=== PATIENT | male | born 1995 | race Caucasian/White ===

== ENCOUNTER 2019-01-18 10:07 | Emergency (ER) | payer MEDICAID ==
[~2019-01-18] VITALS: Wt 84.6 kg
[2019-01-18] MEDS ORDERED: ONDANSETRON (ODT) 4 MG TAB ODT STA (10:41)
[2019-01-18] MEDS ORDERED: KETOROLAC 30 MG INJ IM STA (10:41)
[2019-01-18] MEDS ORDERED: LIDOCAINE/MYLANTA 40 ML BTL PO ONE (11:00)
[2019-01-18] MEDS ORDERED: ACET-141 PO (12:33)
[2019-01-18] MEDS ORDERED: UDMYL PO (12:33)
--- NOTE | 2019-01-18 12:34 | ERD ---
ER Documentation Chief Complaint Chief Complaint mid upper abd pain rad downward w n/v ROS All systems reviewed and are negative except as per history of present illness. Medications Home Meds Active Scripts Acetaminophen* (Acetaminophen*) 500 MG Extra Strength Tablet, 500 MG PO Q4H PRN for PAIN AND OR ELEVATED TEMP, #30 TAB Prov:ANAY BAILEY DO 01/18/19 Magaldrate/Simethicone* (Mag-Al Plus Suspension*) 30 Ml Oral.susp, 30 ML PO Q6H PRN for GASTROINTESTINAL UPSET, #1 BOTTLE Prov:ANAY BAILEY DO 01/18/19 Allergies Allergies: Coded Allergies: No Known Allergy (Unverified , 01/18/19) PMhx/Soc Medical and Surgical Hx: pt denies Medical Hx, pt denies Surgical Hx Hx Alcohol Use: No Hx Substance Use: No Hx Tobacco Use: No Smoking Status: Never smoker Physical Exam Vitals Vital Signs Date Temp Pulse Resp B/P (MAP) Pulse Ox O2 O2 Flow FiO2 Time Delivery Rate 01/18/19 97.5 82 20 110/56 97 10:11 (74) Physical Exam Const: No acute distress Head: Atraumatic Eyes: Normal Conjunctiva ENT: Normal External Ears, Nose and Mouth. Neck: Full range of motion. No meningismus. Resp: Clear to auscultation bilaterally Cardio: Regular rate and rhythm, no murmurs Abd: Soft, non tender, non distended. Normal bowel sounds Skin: No petechiae or rashes Back: No midline or flank tenderness Ext: No cyanosis, or edema Neur: Awake and alert Psych: Normal Mood and Affect Result Diagram: 01/18/19 1055 01/18/19 1055 Results 24 hrs Laboratory Tests Test 01/18/19 10:47 01/18/19 10:55 Urine Color YELLOW Urine Clarity CLEAR Urine pH 8.0 Urine Specific Williamson 1.021 Urine Ketones NEGATIVE mg/dL Urine Nitrite NEGATIVE mg/dL Urine Bilirubin NEGATIVE mg/dL Urine Urobilinogen NEGATIVE mg/dL Urine Leukocyte Esterase NEGATIVE Veronica/ul Urine Hemoglobin NEGATIVE mg/dL Urine Glucose NEGATIVE mg/dL Urine Total Protein NEGATIVE mg/dl White Blood Count 9.3 10^3/ul Red Blood Count 6.07 10^6/ul Hemoglobin 16.5 g/dl Hematocrit 49.1 % Mean Corpuscular Volume 80.9 fl Mean Corpuscular Hemoglobin 27.2 pg Mean Corpuscular Hemoglobin Concent 33.6 g/dl Red Cell Distribution Width 12.7 % Platelet Count 243 10^3/UL Mean Platelet Volume 11.1 fl Immature Granulocytes % 0.400 % Neutrophils % 83.4 % Lymphocytes % 11.5 % Monocytes % 4.2 % Eosinophils % 0.2 % Basophils % 0.3 % Nucleated Red Blood Cells % 0.0 /100WBC Immature Granulocytes # 0.040 10^3/ul Neutrophils # 7.8 10^3/ul Lymphocytes # 1.1 10^3/ul Monocytes # 0.4 10^3/ul Eosinophils # 0.0 10^3/ul Basophils # 0.0 10^3/ul Nucleated Red Blood Cells # 0.0 10^3/ul Sodium Level 141 mmol/L Potassium Level 4.3 mmol/L Chloride Level 100 mmol/L Carbon Dioxide Level 29 mmol/L Anion Gap 12 Blood Urea Nitrogen 12 mg/dl Creatinine 0.77 mg/dl Est Glomerular Filtrat Rate mL/min > 60 mL/min Glucose Level 124 mg/dl Calcium Level 10.3 mg/dl Total Bilirubin 0.8 mg/dl Direct Bilirubin 0.00 mg/dl Indirect Bilirubin 0.8 mg/dl Aspartate Amino Transf (AST/SGOT) 39 IU/L Alanine Aminotransferase (ALT/SGPT) 48 IU/L Alkaline Phosphatase 71 IU/L Total Protein 9.2 g/dl Albumin 5.0 g/dl Globulin 4.20 g/dl Albumin/Globulin Ratio 1.19 Lipase 90 U/L Current Medications Medications Dose Sig/Anibal Start Time Status Last (Trade) Ordered Route PRN Stop Time Admin Dose Reason Admin Ketorolac 30 mg ONCE STAT 01/18/19 DC 01/18/19 Tromethamine IM 10:41 10:49 (Toradol) 01/18/19 10:44 Ondansetron 4 mg ONCE STAT 01/18/19 DC 01/18/19 HCl (Zofran ODT 10:41 10:49 Odt) 01/18/19 10:44 40 ml ONCE ONCE 01/18/19 DC 01/18/19 Miscellaneous PO 11:00 10:48 Medication 01/18/19 11:01 (Gi Cocktail (2)) Departure Diagnosis: Primary Impression: Abdominal pain Abdominal location: epigastric Qualified Codes: R10.13 - Epigastric pain Condition: Fair Patient Instructions: Abdominal Pain, Gastritis (Adult) Referrals: [facility] YOU HAVE RECEIVED A MEDICAL SCREENING EXAM AND THE RESULTS INDICATE THAT YOU DO NOT HAVE A CONDITION THAT REQUIRES URGENT TREATMENT IN THE EMERGENCY DEPARTMENT. FURTHER EVALUATION AND TREATMENT OF YOUR CONDITION CAN WAIT UNTIL YOU ARE SEEN IN YOUR DOCTORS OFFICE WITHIN THE NEXT 1-2 DAYS. IT IS YOUR RESPONSIBILITY TO MAKE AN APPOINTMENT FOR FOLOW-UP CARE. IF YOU HAVE A PRIMARY DOCTOR --you should call your primary doctor and schedule an appointment IF YOU DO NOT HAVE A PRIMARY DOCTOR YOU CAN CALL OUR PHYSICIAN REFERRAL HOTLINE AT IF YOU CAN NOT AFFORD TO SEE A PHYSICIAN YOU CAN CHOSE FROM THE FOLLOWING [facility] [address] [facility] [facility] [address] [facility] [facility] [address] [facility] [address] [facility] [facility] [address] [facility]. [facility]. [address] Additional Instructions: Call your primary care doctor TOMORROW for an appointment during the next 1-2 days.See the doctor sooner or return here if your condition worsens before your appointment time. Llame al doctor MAANA y joanna perlita DIANNA PARA DENTRO DE 1-2 RIVAS.Dgale a la secretaria que nosotros le instruimos hacer esta dianna.Avise o llame si chamorro condicin se empeora antes de la dianna. Regresa aqui si peor o no mejor. ANAY BAILEY DO Jan 18, 2019 12:34
[2019-01-18 12:42] VITALS: BP 112/63; PULSE 76; RESP 18
== END 2019-01-18 12:41 | disposition home or self-care (01) ==
LOC: FTE 10:07
DX: R10.13 Epigastric pain (principal)
CPT/HCPCS: 36415; 76700; 80053; 81003; 83690; 85025; 96372; J1885; Z7502; Z7610

== ENCOUNTER 2019-07-12 12:48 | Emergency (ER) | payer MEDICAID ==
[~2019-07-12] VITALS: Ht 167.6 cm; Wt 82.1 kg
[~2019-07-12 12:48] MED LIST: ACET-141 PO; NAPR-985 PO; UDMYL PO
[2019-07-12 13:06] VITALS: BP 131/74; PULSE 77; RESP 18; Ht 167.6 cm; Wt 82.1 kg
[2019-07-12] MEDS ORDERED: LIDOCAINE 1% (MPF) 5 ML VIAL INJ ONE (13:30)
[2019-07-12] MEDS ORDERED: DIPHTH/TET/ACEL PERTUSS (ADULT) 0.5 ML VIAL IM* ONE (14:30)
== END 2019-07-12 14:38 | disposition home or self-care (01) ==
LOC: FTE 12:48
DX: S61.011A Laceration without foreign body of right thumb without damage to nail, initial encounter (principal); W26.8XXA Contact with other sharp object(s), not elsewhere classified, initial encounter; Y92.9 Unspecified place or not applicable; Z23 Encounter for immunization
CPT/HCPCS: 12001; 90471; Z7502; Z7610